=== PATIENT | male | born 1980 | race Caucasian/White ===

== ENCOUNTER 2017-11-22 00:50 | Emergency (ER) | payer OTHER ==
[~2017-11-22] VITALS: Ht 190.5 cm; Wt 96.2 kg
[~2017-11-22 00:50] MED LIST: DIVA500T59 PO; OLAN10TA11 PO
[2017-11-22 00:56] VITALS: TEMP 36.3; Ht 190.5 cm; Wt 96.2 kg
[2017-11-22] MEDS ORDERED: FENTANYL CITRATE INJ 50 MCG/1 ML 2 ML VIAL IV ONE (01:15)
[2017-11-22 01:28] LABS: BASO % 0.5 %; BASO ABS # 0.04 K/uL (0-0.2); EOS % 1.3 %; HEMATOCRIT 44.4 % (42-52); HEMOGLOBIN 15.8 g/dL (14.0-18.0); IG# 0.01 K/uL (0.00-0.02); LYMPH % 27.2 %; LYMPH ABS # 2.13 K/uL (1.2-3.4); MEAN CORPUSCULAR HEMOGLOBIN 31.7 pg (25-34); MEAN CORPUSCULAR HGB CONC 35.6 g/dl (32-36); MEAN PLATELET VOLUME 9.5 fL (7.4-10.4); MONO % 8.4 %; MONO ABS # 0.66 K/uL (0.11-0.59); NEUT % 62.5 %; NEUT ABS # 4.89 K/uL (1.4-6.5); PLATELET COUNT 182 K/uL (130-400); RED CELL DISTRIBUTION WIDTH CV 12.9 % (11.5-14.5); RED CELL DISTRIBUTION WIDTH SD 41.3 fL (36.4-46.3); WHITE BLOOD COUNT 7.83 K/uL (4.8-10.8)
[2017-11-22] MEDS ORDERED: PHENYLEPHRINE HCL INJ 10 MG in SYRINGE 19 ML ITC ONE (01:30)
[2017-11-22 01:49] LABS: CALCIUM 8.4 mg/dl (8.5-10.1); CREATININE 0.94 mg/dl (0.60-1.40); POTASSIUM 3.4 mmol/L (3.5-5.1); TOTAL PROTEIN 7.4 gm/dl (6.4-8.2)
[2017-11-22] MEDS ORDERED: LIDOCAINE HCL 1% 20 ML VIAL ONE (01:57)
[2017-11-22] MEDS ORDERED: CEFAZOLIN SOD 2000MG/15 ML IV PUSH IV ONE (02:30)
--- NOTE | 2017-11-22 02:48 | Urology Consultation ---
History General Date of Service: Nov 22, 2017. Chief Complaint: Erection present for a day and a half Primary Care Physician: No Doctor, Assigned Pt seen a urologist before?: Yes If yes, why?: Dr. Hamilton for stone disease History of Present Illness 36-year-old male who presents to the emergency room for an erection which has been present since 8 PM on . He denies drug use or alterations in his medication and reports that he takes no regular medications at home. He reports he has had 2 or 3 episodes of priapism in the past which have spontaneously resolved within 48 hours and for which he has not sought medical attention. He presented due to persistent discomfort at the site of his erection. He denies a history of sickle cell anemia or known coagulation issues within the family save for history of blood clot with his mother. Urology consultation is requested urgently for assistance with this case. Laboratory Last 24 Hours Test 11/22/17 01:15 White Blood Count 7.83 K/uL Red Blood Count 4.99 M/uL Hemoglobin 15.8 g/dL Hematocrit 44.4 % Mean Corpuscular Volume 89.0 fL Mean Corpuscular Hemoglobin 31.7 pg Mean Corpuscular Hemoglobin Concent 35.6 g/dl Platelet Count 182 K/uL Mean Platelet Volume 9.5 fL Neutrophils (%) (Auto) 62.5 % Lymphocytes (%) (Auto) 27.2 % Monocytes (%) (Auto) 8.4 % Eosinophils (%) (Auto) 1.3 % Basophils (%) (Auto) 0.5 % Neutrophils # (Auto) 4.89 K/uL Lymphocytes # (Auto) 2.13 K/uL Monocytes # (Auto) 0.66 K/uL Eosinophils # (Auto) 0.10 K/uL Basophils # (Auto) 0.04 K/uL RDW Standard Deviation 41.3 fL RDW Coefficient of Variation 12.9 % Immature Granulocyte % (Auto) 0.1 % Immature Granulocyte # (Auto) 0.01 K/uL Sodium Level 139 mmol/L Potassium Level 3.4 mmol/L Chloride Level 107 mmol/L Carbon Dioxide Level 26 mmol/L Anion Gap 6.0 mmol/L Blood Urea Nitrogen 14 mg/dl Creatinine 0.94 mg/dl Est Creatinine Clear Calc Drug Dose 128.6 ml/min Estimated GFR () 119.6 Estimated GFR (Non- 103.2 BUN/Creatinine Ratio 15.1 Random Glucose 66 mg/dl Calcium Level 8.4 mg/dl Total Bilirubin 0.9 mg/dl Aspartate Amino Transf (AST/SGOT) 15 U/L Alanine Aminotransferase (ALT/SGPT) 36 U/L Alkaline Phosphatase 99 U/L Total Protein 7.4 gm/dl Albumin 4.0 gm/dl Globulin 3.4 gm/dl Albumin/Globulin Ratio 1.2 Past History depression, kidney stones, other (History of suicidal ideation and psychiatric commitment) Past Surgical History: lithotripsy Family History Diabetes with mother, hypertension, diabetes and CVA with father Social History Smoking: other (Previous smoking history) Drug use: none (History of multiple drug abuse) Marital status: Housing status: lives with family Occupation status: unemployed History of MDRO No Allergies Coded Allergies: No Known Allergies (Verified , 11/22/17) Medications Home Medications: Home Meds and Scripts Medications Dose Route/Sig Max Daily Dose Days Date Category No Active Prescriptions or Reported Medications Rx Review of Systems Review of Systems Constitutional: No fever, No chills Eyes: No blurred vision Neurological: No passing out Endocrine: No excessive thirst Gastrointestinal: No abdominal pain Cardiovascular: No angina, No irregular heartbeat Respiratory: No coughing up blood Skin: No boils Musculoskeletal: No back pain Blood / Lymphatic: No bruise easily Ears / Nose / Throat: No sinus Psychologic / Mental: No trouble remembering Male : + see HPI Physical Exam Vital Signs: Vital Signs Past 12 Hours Date Time Temp Pulse Resp B/P (MAP) Pulse Ox O2 Delivery O2 Flow Rate FiO2 11/22/17 02:16 75 11/22/17 00:56 36.3 84 18 130/74 98 Room Air Physical Exam: General Appearance: WD/WN, no apparent distress ENT: normal ENT inspection, hearing grossly normal Neck: supple, no adenopathy Respiratory/Chest: no respiratory distress, no accessory muscle use Cardiovascular: no JVD Gastrointestinal: Abdomen: normal abdomen Bladder: normal bladder Renal: normal renal Liver: normal liver Spleen: normal spleen Genitourinary - Male: Penis: circumcised, pertinent finding (85% erection) Urethral Meatus: normal urethral meatus Testes: normal testes Epididymides: normal epididymides Scrotum: normal scrotum Extremities: non-tender Neurologic/Psychiatric: alert Assessment & Plan Assessment & Plan A/P 36-year-old male with priapism for greater than 24 hours. Findings reviewed with the patient on arrival. As noted, seen the length of time of his untreated, presumably ischemic priapism, his odds of spontaneous erection in the future no matter the course of therapy today are poor. The main indication for therapy is to improve discomfort and salvage any possibility of future sexual function and potency. After discussion of risks and benefits of intervention patient decides to proceed with urgent penile drainage and irrigation. Consent obtained and patient is hooked to a heart monitor. After Betadine prep two skin wheals of 1% plain local anesthetic are made followed by the placement of two 18-gauge needles on opposite sides of the phallus. This results in the drainage of somewhat darkened blood but no sludge. Arterial blood gas is sent at the time of needle placement. Drainage alone results in a decrease in the erection to less than 50% turgidity. At approximately 4 minute intervals phenylephrine solution of 500 mcg/mL are provided via the intracavernosal needles with rapid decompression and detumescence of the patient's priapism. No alterations in blood pressure or symptomatology at the time, a total of 5 doses over approximately half an hour provided to avoid recurrence. After this is complete the needles were removed and bacitracin, gauze and lightly wrapped Coban are provided to assist with swelling and bruising. Wound care and expected course are reviewed. Patient tolerated the procedure well and vocalizes good understanding of the treatment plan. We will arrange for outpatient follow-up in approximately 2 weeks time. I recommended dose of cephalosporins in the operating room today. As discussed with the patient I would recommend oral Sudafed should he have an undesired erection lasting more than 2 hours before his follow-up appointment. The need for prompt re-presentation to the emergency room for recurrent priapism is reviewed and discussed. Thank you for allowing us to participate in this patient's acute care. Please contact our service with any questions or concerns.
[2017-11-22 03:06] VITALS: BP 103/84; PULSE 78; O2SAT 98
[2017-11-22] MEDS ORDERED: CEPH500C PO (03:14)
[2017-11-22] MEDS ORDERED: NORCO 5/325MG HOME PACK PO ONE (03:15)
[2017-11-22] MEDS ORDERED: CEPHALEXIN 500MG HOME PACK 1 EA BTL PO ONE (03:15)
--- NOTE | 2017-11-23 01:14 | EMERGENCY ROOM VISIT NOTE ---
History First contact with patient: 01:05 Chief Complaint: PENIS PAIN Stated Complaint: I HAVE AND ERECTION LASTING 2 DAYS AND IS PAINFUL Nursing Triage Summary: Patient reports errection lasting two days. Patient reports not taking any ED meds. History of Present Illness The patient is a 36 year old male who presents to the Emergency Room with complaints of erection that began approximately 31 hours ago. The patient states that he has had 2 or 3 episodes of this in the past, but never for this length of time. The patient does not take any erectile dysfunction medications. He denies a history of sickle cell disease or known coagulopathy. He does state that his mother had a pulmonary emboli of unknown etiology when she was older. The patient does not have injury or trauma to his head, neck, or back. No reports of sexual dysfunction in the past. He has some minimal testicle tenderness, but much of his discomfort is throughout the shaft of the penis. He states that he has been able to urinate despite this. He rates his discomfort a 9/10. Review of Systems More than 10 systems were reviewed and otherwise negative with the exception of history of present illness. Past Medical/Surgical History Medical Problems: (1) ALCOHOL ABUSE-UNSPEC (2) Bipolar disorder (3) DRUG ABUSE NEC-UNSPEC (4) OPIOID ABUSE-UNSPEC (5) PSYCHOSIS NOS Family History No additional pertinent family history Social History Smoking Status: Current Every Day Smoker Alcohol Use: occasionally Drug Use: none Marital Status: Housing Status: lives with family Occupation Status: unemployed Current/Historical Medications Scheduled Cephalexin Monohydrate (Keflex), 500 MG PO TID Physical Exam Vital Signs Date Time Temp Pulse Resp B/P (MAP) Pulse Ox O2 Delivery O2 Flow Rate FiO2 11/22/17 03:06 78 16 103/84 98 Room Air 11/22/17 02:41 78 16 124/89 99 11/22/17 02:32 133/74 11/22/17 02:16 75 11/22/17 02:16 129/86 11/22/17 02:08 116/85 11/22/17 00:56 36.3 84 18 130/74 98 Room Air Physical Exam VITALS: Vitals are noted on the nurse's note and reviewed by myself. Vital signs stable. GENERAL: Well-developed, well-nourished, white male, who appears in significant discomfort secondary to his stated complaint. HEART: Regular rate and rhythm without murmurs gallops or rubs. LUNGS: Clear to auscultation bilaterally without wheezes, rales or rhonchi. No retractions or accessory muscle use. ABDOMEN: Positive normal bowel sounds x 4. Soft, nontender, without masses or organomegaly. No guarding or rebound tenderness. : Engorged and erect circumcised male phallus that is exquisitely tender. No obvious ischemia is noted. Medical Decision & Procedures Laboratory Results 11/22/17 01:15 Red Blood Count 4.99, Mean Corpuscular Volume 89.0, Mean Corpuscular Hemoglobin 31.7, Mean Corpuscular Hemoglobin Concent 35.6, Mean Platelet Volume 9.5, Neutrophils (%) (Auto) 62.5, Lymphocytes (%) (Auto) 27.2, Monocytes (%) (Auto) 8.4, Eosinophils (%) (Auto) 1.3, Basophils (%) (Auto) 0.5, Neutrophils # (Auto) 4.89, Lymphocytes # (Auto) 2.13, Monocytes # (Auto) 0.66, Eosinophils # (Auto) 0.10, Basophils # (Auto) 0.04 11/22/17 01:15 Test 11/22/17 01:15 11/22/17 02:17 White Blood Count 7.83 K/uL (4.8-10.8) Red Blood Count 4.99 M/uL (4.7-6.1) Hemoglobin 15.8 g/dL (14.0-18.0) Hematocrit 44.4 % (42-52) Mean Corpuscular Volume 89.0 fL (80-100) Mean Corpuscular Hemoglobin 31.7 pg (25-34) Mean Corpuscular Hemoglobin Concent 35.6 g/dl (32-36) Platelet Count 182 K/uL (130-400) Mean Platelet Volume 9.5 fL (7.4-10.4) Neutrophils (%) (Auto) 62.5 % Lymphocytes (%) (Auto) 27.2 % Monocytes (%) (Auto) 8.4 % Eosinophils (%) (Auto) 1.3 % Basophils (%) (Auto) 0.5 % Neutrophils # (Auto) 4.89 K/uL (1.4-6.5) Lymphocytes # (Auto) 2.13 K/uL (1.2-3.4) Monocytes # (Auto) 0.66 K/uL (0.11-0.59) Eosinophils # (Auto) 0.10 K/uL (0-0.5) Basophils # (Auto) 0.04 K/uL (0-0.2) RDW Standard Deviation 41.3 fL (36.4-46.3) RDW Coefficient of Variation 12.9 % (11.5-14.5) Immature Granulocyte % (Auto) 0.1 % Immature Granulocyte # (Auto) 0.01 K/uL (0.00-0.02) Anion Gap 6.0 mmol/L (3-11) Est Creatinine Clear Calc Drug Dose 128.6 ml/min Estimated GFR () 119.6 Estimated GFR (Non- 103.2 BUN/Creatinine Ratio 15.1 (10-20) Calcium Level 8.4 mg/dl (8.5-10.1) Total Bilirubin 0.9 mg/dl (0.2-1) Aspartate Amino Transf (AST/SGOT) 15 U/L (15-37) Alanine Aminotransferase (ALT/SGPT) 36 U/L (12-78) Alkaline Phosphatase 99 U/L (45-117) Total Protein 7.4 gm/dl (6.4-8.2) Albumin 4.0 gm/dl (3.4-5.0) Globulin 3.4 gm/dl (2.5-4.0) Albumin/Globulin Ratio 1.2 (0.9-2) Venous Blood pH 7.39 (7.36-7.41) Venous Blood Partial Pressure CO2 40 mmHg (38.0-50.0) Venous Blood Partial Pressure O2 54 mmHg Venous Blood HCO3 24 mmol/L Venous Blood Oxygen Saturation 88.1 % Venous Blood Base Excess -1.3 mEq/L Medications Administered Medications (Trade) Dose Ordered Sig/Stanley Route Start Time Stop Time Status Last Admin Dose Admin Fentanyl Citrate (Fentanyl Inj) 50 mcg NOW ONCE IV 11/22/17 01:15 11/22/17 01:16 DC 11/22/17 01:29 50 MCG Cefazolin Sodium (Ancef 2000mg Iv Push) 2,000 mg NOW ONCE IV 11/22/17 02:30 11/22/17 02:31 DC 11/22/17 02:30 2,000 MG Acetaminophen/ Hydrocodone Bitart ([place] 5/325mg Home Pack) 1 homepack UD ONCE PO 11/22/17 03:15 11/22/17 03:16 DC 11/22/17 03:19 1 HOMEPACK Cephalexin Monohydrate (Keflex 500MG Home Pack) 1 homepack NOW ONCE PO 11/22/17 03:15 11/22/17 03:16 DC 11/22/17 03:19 1 HOMEPACK ED Course Physical exam and history were performed. Nursing notes, EMR, and Medication List were personally reviewed. Patient appears to have priapism bring him to the emergency department tonight. Based on the history this is been occurring for approximately 31 hours. IV access was established and basic labs were obtained. The patient's blood work is as above and is essentially nondiagnostic. The patient was given IV fentanyl here in the department for comfort. I immediately contacted urology, and spoke with Dr. Allne, who saw the patient here in the department. The patient was given a dose of Ancef. The patient was evaluated by Dr. Allen, and he utilized phenylephrine to help reduce the patient's erection. The patient tolerated this well. Please see Dr. Allen's dictation for specifics regarding this. The patient will be discharged with a course of Keflex and instructions to follow with Dr. Allen's office. The patient was certainly invited back to the ER if symptoms returned. He was otherwise invited back to the ER with any new, worsening, or concerning symptoms. The chart was completed utilizing [employer] Speech Voice Recognition Software. Grammatical errors, random word insertions, pronoun errors, and incomplete sentences are an occasional consequence of this system due to software limitations, ambient noise, and hardware issues. Any formal questions or concerns about the content, text, or information contained within the body of this dictation should be directly addressed to the provider for clarification. . Medical Decision Differential diagnosis includes, but is not limited to: Priapism, neurologic disorder, clotting disorder, drug reaction, and others Impression Primary Impression: Priapism Departure Information Dispostion Home / Self-Care Condition GOOD Prescriptions Cephalexin Monohydrate (Keflex) 500 Mg Cap 500 MG PO TID for 10 Days, #30 CAP Prov: Marv Rivero PA-C 11/22/17 Referrals Parth Allen MD, Urology Forms HOME CARE DOCUMENTATION FORM, IMPORTANT VISIT INFORMATION Patient Instructions My [facility] Additional Instructions You were seen and evaluated today on an emergency basis only. This is not a substitute for, or an effort to provide, complete comprehensive medical care. It is not possible to recognize and treat all injuries or illnesses in a single emergency department visit. For this reason it is recommended that you followup with Urology, Dr. Allen's office, for ongoing care and evaluation. Call the office first thing Friday morning and let the secretaries know you are seen by Dr. Allen. They will help facilitate your follow-up appointment. Cephalexin(Keflex) 500mg: Take one pill 3 times daily for 10 days to prevent infection. All antibiotics can cause diarrhea. If this occurs and you feel worse or it does not resolve in 1-2 days follow up with your doctor or return to the Emergency Department as this could be signs of serious underlying problems. Any medication can cause an allergic reaction, stop the pills immediately and return to the ER for rash, hives, breathing difficulties, or swelling. [place] (hydrocodone/acetaminophen) 5/325 mg (homepack): Take ONE pill by mouth every 6 hours as needed for worsening breakthrough pain. Do not drink or drive on [place]. This medication will likely make you tired. Do not take [place] and Tylenol at the same time as both contain acetaminophen. [place] may cause constipation. You may wish to take an [id number] stool softener like Colace if this occurs. You are welcome to return to the emergency department anytime with new, worsening, or concerning symptoms.
== END 2017-11-22 03:15 | disposition home or self-care (01) ==
LOC: C.EDB 00:54 → C.EDC 03:15
DX: N48.30 Priapism, unspecified (principal); F17.200 Nicotine dependence, unspecified, uncomplicated